=== PATIENT | female | born 1980 | race Caucasian/White ===

== ENCOUNTER 2021-03-06 09:58 | Emergency (ER) | payer MEDICAID, OTHER, SELFPAY ==
--- NOTE | 2021-03-06 10:31 | XRR_ITS ---
PROCEDURE INFORMATION: Exam: XR Chest Exam date and time: 03/06/2021 10:31 AM Age: 40 years old Clinical indication: Condition or disease; Other: Covid; Additional info: Covid pos TECHNIQUE: Imaging protocol: XR of the chest. Views: 1 view. COMPARISON: No relevant prior studies available. FINDINGS: Lungs: Bilateral interstitial pulmonary infiltrates are present which are consistent with viral pneumonia. Pleural spaces: Unremarkable. No pleural effusion. No pneumothorax. Heart/Mediastinum: Unremarkable. No cardiomegaly. Bones/joints: Unremarkable. XR/XR chest 1V portable [id number] IMPRESSION: Bilateral interstitial pulmonary infiltrates consistent with interstitial viral pneumonia.
[2021-03-06 11:12] VITALS: BP 164/121; PULSE 122; RESP 16; TEMP 38.2; O2SAT 92
--- NOTE | 2021-03-06 11:46 | ED_ITS ---
HPI - COVID General: Chief Complaint: COVID symptoms Stated Complaint: Fatique, low o2, SOB, covid + Time Seen by Provider: 03/06/21 12:06 Source: patient Mode of arrival: ambulatory Triage information: Has fever, cough or shortness of breath . Exposure to COVID + person last 14 days History of Present Illness: HPI Narrative: day 8 of covid symptoms, positive from at home test complaint: known COVID positive Prior testing date: 02/27/21 COVID 19 common symptoms: positive fever(s), chills, cough, productive cough, fatigue, nasal congestion, nausea, vomiting and chest tightness COVID 19 other sytmptoms: positive chest pressure COVID Results: No Data to Display Review of Systems General: Reports: 10 or more systems reviewed and unremarkable except in HPI and below Const: Reports: fever(s), chills, fatigue and night sweats ENMT: Reports: nasal congestion Resp: Reports: productive cough GI: Reports: nausea and vomiting Physical Exam Const: COMMON NORMALS: no acute distress, patient oriented x3, no limitations and alert GENERAL APPEARANCE: cooperative and comfortable ORIENTATION/CONSCIOUSNESS: Yes awake, Yes oriented to person, Yes oriented to place and Yes oriented to time HENMT: COMMON NORMALS: normocephalic, atraumatic, external ears normal, EAC's normal, TM's normal bilaterally and Normal external nose present HEAD & SCALP: normal to inspection, normocephalic and atraumatic FACE & SINUS: normal facial exam, sinuses nontender and face symmetric NOSE: Normal external nose present, Normal nares present and No nasal discharge present EXTERNAL EAR: Yes external ears normal EXTERNAL AUDITORY CANAL: EAC's normal TYMPANIC MEMBRANE: TM's normal bilaterally MOUTH: Normal oral and palatal mucosa present, lip normal and tongue normal THROAT: posterior oropharynx normal, tonsils normal and uvula midline Eye: COMMON NORMALS: Equal, round and reactive pupils present, EOMs intact bilaterally and conjunctivae normal GENERAL EYE: appearance normal, both eyes and all related structures and normal light reflex EYELID: eyelids normal CONJUNCTIVA: Yes conjunctivae normal PUPIL: Yes Equal, round and reactive pupils present EOM: Yes EOM abnormal DIRECT OPHTHALMOSCOPY: Yes normal light reflex Neck/C-Spine: COMMON NORMALS: full ROM, no lymphadenopathy, supple, no meningeal signs, no JVD and Thyroid normal GENERAL: Yes normal visual inspection THYROID: Thyroid normal CERVICAL SPINE: Yes cervical ROM normal and Yes normal cervical lordosis Lymph: LYMPHATIC: no lymphadenopathy noted Chest: COMMONS NORMALS: normal inspection of the chest and normal palpation of entire chest wall Resp: COMMON NORMALS: clear to auscultation bilaterally EFFORT & INSPECTION: Yes able to speak in complete sentences AUSCULTATION: clear to auscultation bilaterally Cardio: COMMON NORMALS: no JVD, regular rate, regular rhythm, S1 normal heart sound present, S2 normal heart sound present, No gallops present (Cardio), No clicks present (Cardio), No murmurs present (Cardio), No rub (Cardio) and Peripheral pulses 2+ throughout RATE: regular rate RHYTHM: regular rhythm HEART SOUNDS: S1 normal heart sound present and S2 normal heart sound present PERIPHERAL PULSES: Peripheral pulses 2+ throughout GI: COMMON NORMALS: Normal to inspection, nondistended, normoactive bowel sounds present, Soft to palpation, non-tender and no masses PALPATION: Yes Soft to palpation : COMMON NORMALS: Yes no CVA tenderness and Yes normal external appearance BLADDER/KIDNEY EXAM: Yes no CVA tenderness Back/Pelvis: COMMON NORMALS: no CVA tenderness, thoracic and lumbar spine normal to inspection, no thoracic nor lumbar tenderness and thoraco-lumbar ROM normal Extremity: COMMON NORMALS: normal to inspection, full ROM, capillary refill normal, no joint enlargement, no clubbing, cyanosis or edema, no calf tenderness and no pedal edema GENERAL: Yes normal exam except as noted Neuro: COMMON NORMALS: patient oriented x3, moves all extremities, no focal motor deficits, no sensory deficits noted and gait normal SENSORIUM/ORIENTATION: Yes alert, Yes oriented to person, Yes oriented to place and Yes oriented to time MENINGEAL SIGNS: Yes no meningeal signs Psych: COMMON NORMALS: mental status grossly normal, Normal thought process present, cooperative, normal affect, speech normal and activity/motor behavior normal SPEECH: Yes normal speech THOUGHT PROCESS: Normal thought process present Skin: COMMON NORMALS: no rashes or lesions noted, no wounds and turgor normal GENERAL SKIN EXAM: no rashes or lesions noted and turgor normal Course ED course: Pt has been ill with covid for 8 days, fever is persistent and breakthrough despite her taking antipyretics. She is fatigued and has some episodes of low ooxygen. Pt will benefit from MCA infusion and we will set her up via case management. Her sats remain over 92% while in the ER. She is stable for DC. XRAY consistent with viral pneumonia. Vital Signs: Vital signs: Vital Signs Temperature 100.7 F H 03/06/21 11:12 Pulse Rate 122 H 03/06/21 11:12 Respiratory Rate 16 03/06/21 11:12 Blood Pressure 164/121 03/06/21 11:12 Pulse Oximetry 92 03/06/21 11:12 MDM - COVID Lab Data: Labs: [employer] [facility] [address] [place] [address] XRay Report Signed Patient: Sudha Talavera Unit #: [id number] : [id number] Age/Sex: 40 / F ADM Date: 03/06/21 Loc: ER Room/Bed: Attending Dr: Ordering Provider/Ordering MD: Shaylee Judge NP Date of Service: 03/06/21 Procedure(s): XR chest 1V portable [id number] Accession Number(s): [id number] Report Number: [id number] PROCEDURE INFORMATION: Exam: XR Chest Exam date and time: 03/06/2021 10:31 AM Age: 40 years old Clinical indication: Condition or disease; Other: Covid; Additional info: Covid pos TECHNIQUE: Imaging protocol: XR of the chest. Views: 1 view. COMPARISON: No relevant prior studies available. FINDINGS: Lungs: Bilateral interstitial pulmonary infiltrates are present which are consistent with viral pneumonia. Pleural spaces: Unremarkable. No pleural effusion. No pneumothorax. Heart/Mediastinum: Unremarkable. No cardiomegaly. Bones/joints: Unremarkable. XR/XR chest 1V portable [id number] IMPRESSION: Bilateral interstitial pulmonary infiltrates consistent with interstitial viral pneumonia. Dictated By: Fan Lane Signed By: Fan Lane Signed Date/Time: 03/06/21 1108 DD/ 1106 COVID Results: No Data to Display Monoclonal Antibody - ED Inclusion/Exclusion Criteria age >/= 12 years, weight >/= 40kg /88lbs and symptom onset less than 10 days ago obesity (BMI >25 or 85%til for age) Patient education patient/family/caregiver received/reviewed fact sheet Plan for treatment Meets criteria for Monoclonal Antibody infusion Date of symptom(s) onset: 02/27/21 Discharge Plan Discharge Condition: Stable Prescriptions: New Advair Diskus 100-50 mcg/dose blister with device 1 inh inhalation Q12H Qty: 1 RF: 0 dexamethasone 6 mg tablet 6 mg PO DAILY Qty: 6 RF: 0 Zithromax TRI-DARYL 500 mg tablet See Rx Instructions .ROUTE .COMPLEX Qty: 3 RF: 0 Zofran 4 mg tablet 4 mg PO Q6H Qty: 15 RF: 0 Discharge Orders: Discharge ED (Routine); Ordered 03/06/21 Ordered By: Shaylee Judge Referrals: Cary Juárez APRN [Nurse Practitioner] - ([facility]) Activity Restrictions/Additional Instructions: VIT d 3 10,000 IUI x 5 days VIT C 2000 MG DAILY MELATONIN 10MG DAILY QUERCETIN 250 MG DAILY ASPIRIN 81 MG DAILY CONTINUE THIS REGIMEN FOR 2 WEEKS YOU WILL BE GETTING A CALL FROM [facility] FOR YOUR TELEHEALTH APPT WITH CARY JUÁREZ NP. THEN YOU WILL BE GIVEN A TIME FOR YOUR INFUSION. Coding Level of Care Code ED Accounting Clerk for Prabhu Fwd Exam Comprehensive
[2021-03-06] MEDS: acetaminophen 500 mg Tablet 1000 MG PO (12:44)
[2021-03-06] MEDS: dexamethasone 10 mg/mL INJ IM (12:44)
[2021-03-06 12:46] VITALS: PULSE 118; RESP 18; O2SAT 92
--- NOTE | 2021-03-06 15:08 | DCPLANNER ---
seaport planning manager had message to schedule an out patient monoclonal antibody infusion for patient. [facility]aport planning manager faxed order to centralized scheduling. Centralized scheduling will call patient with appointment information.
== END 2021-03-06 12:48 | disposition home or self-care (01) ==
PROVIDERS: Emergency Provider Nurse Practitioner Family
DX: U07.1 COVID-19 (principal)
CPT/HCPCS: 71045; 96372; 99283; J1100

== ENCOUNTER 2021-03-14 12:41 | Emergency (ER) | payer MEDICAID, SELFPAY ==
[2021-03-14 13:05] LABS: Glucose Point of Care 434 mg/dL (70-110)
--- NOTE | 2021-03-14 13:08 | XR_ITS ---
WS: [id number] Portable AP upright chest, 03/14/2021 Clinical Data: SOB Comparison: Audible chest, 03/06/2021. Findings: The bilateral patchy opacities have partly cleared The pulmonary vascularity is not increas ed. No pneumothorax is seen. The heart is normal. The pulmonary vascularity is not increased. Monitor leads on the chest wall. XR/XR chest 1V portable [id number] Impression: Partial clearing of bilateral pulmonary opacities.
--- NOTE | 2021-03-14 13:09 | ED_ITS ---
Documented by User: CHEYANNE Dickens 03/15/21 07:02 HPI - General Adult General: Chief complaint: Shortness of Breath/Dyspnea Stated complaint: high blood sugars Time Seen by Provider: 03/14/21 12:51 Source: patient Mode of arrival: ambulatory Limitations: no limitations History of Present Illness: HPI narrative: Patient is a 40-year-old female presents to ED today at the request of her PCP for hyperglycemia. Patient tells me she was diagnosed with COVID approximately 2 weeks ago. She is currently off quarantine (although reportedly is still on O2 per her PCP request). At some point during that time period she had routine blood work performed and when she went to her PCP today for follow-up they informed her her glucose was over 500 and recommended she come to the ED. Patient denies frequent urination or excessive thirst. She is not having abdominal pain, nausea, or vomiting. She has a history of gestational diabetes but no other diabetic history. She does state diabetes runs in her family. Relieving factors: none Exacerbating factors: none Associated symptoms: Reports dyspnea (recent COVID infection-still on oxygen per PCP request); Deny chest pain, headache(s), malaise, nausea, rash, palpitations, syncope or vomiting Review of Systems Const: Denies: fever(s), chills, body aches, fatigue or malaise Eyes: Denies: change in vision or blurry vision ENMT: Denies: throat pain, odynophagia, nasal discharge or nasal congestion Card: Denies: chest pain, palpitations, lightheadedness, syncope or pre- syncope Resp: Reports: dyspnea (recent COVID infection-still on oxygen per PCP request) and non-productive cough; Denies: wheezing, hemoptysis or chest congestion GI: Denies: abdominal pain, nausea, vomiting or diarrhea Skin/Breast: Denies: rash Neuro: Denies: headache(s), numbness in extremities, weakness in extremities or sensory changes PFS ED PFSH: Social History Smoking and tobacco status: never smoked Physical Exam Const: COMMON NORMALS: no acute distress, patient oriented x3, no limitations and alert GENERAL APPEARANCE: cooperative NUTRITIONAL APPEARANCE: obese ORIENTATION/CONSCIOUSNESS: Yes awake, Yes oriented to person, Yes oriented to place and Yes oriented to time HENMT: COMMON NORMALS: normocephalic and atraumatic HEAD & SCALP: normocephalic and atraumatic Resp: COMMON NORMALS: normal respiratory effort and clear to auscultation bilaterally AUSCULTATION: clear to auscultation bilaterally Cardio: COMMON NORMALS: regular rhythm RATE: tachycardic RHYTHM: regular rhythm GI: COMMON NORMALS: Normal to inspection, nondistended, normoactive bowel sounds present, Soft to palpation, non-tender, No hepatosplenomegaly present and no masses PALPATION: Yes Soft to palpation and Yes No hepatosplenomegaly present Extremity: COMMON NORMALS: no clubbing, cyanosis or edema, no calf tenderness and no pedal edema Neuro: ALIRIO COMA SCALE: document GCS findings Alirio coma scale eye opening: Spontaneous [place] coma scale verbal response: Orientated [place] coma scale motor response: Obey commands Alirio coma scale total score: 15 COMMON NORMALS: patient oriented x3, CN's II-XII intact bilaterally, moves all extremities, no focal motor deficits, no sensory deficits noted and gait normal SENSORIUM/ORIENTATION: Yes alert, Yes oriented to person, Yes oriented to place and Yes oriented to time Skin: COMMON NORMALS: no rashes or lesions noted GENERAL SKIN EXAM: no rashes or lesions noted Course Vital Signs: Vital signs: Vital Signs Temperature 98.9 F 03/14/21 13:33 Pulse Rate 98 03/14/21 18:08 Respiratory Rate 18 03/14/21 18:08 Blood Pressure 135/85 03/14/21 18:08 Pulse Oximetry 96 03/14/21 18:08 MDM - General Adult [facility] Narrative: Medical decision making narrative: Patient remains tachycardic throughout her stay. She is requiring 3L O2 to sat normally. This certainly could just be some lingering COVID symptoms however the development of a PE could be a possibility. She states all of her other COVID symptoms have subsided. Her CXR is improved when compared to previous. D-dimer was ordered which came back elevated. Spoke to her about CTA imaging and she agrees. She has no evidence for DKA in regards to her hyperglycemia. She was given fluids/insulin here. Will place on Metformin BID and give diabetic supplies with instructions to follow up with PCP for further management and possible initiation of insulin therapy. Care will be transferred to KATHY Casey at shift change. Lab Data: Labs: Lab Results 03/14/21 03/14/21 03/14/21 Range/Units 13:00 13:14 13:50 WBC 12.3 H (4.0-10.0) 10^3/ uL RBC 5.55 H (4.1-5.3) 10^6/u L Hgb 16.0 H (11.5-15.3) g/dL Hct 47.6 H (37.0-47.0) % MCV 85.8 (81-99) fl MCH 28.8 (28.0-34.0) pg MCHC 33.6 (30.0-36.0) g/dL RDW 10.9 L (12.1-15.1) % Plt Count 443 H (130-400) 10^3/c mm MPV 11.9 H (7.4-10.4) fL Neut % (Auto) 72.4 % Lymph % (Auto) 18.0 % Ferry % (Auto) 6.8 % Eos % (Auto) 0.5 % Baso % (Auto) 0.3 % Neut # (Auto) 8.86 H (1.8-7.7) 10^3/u L Lymph # (Auto) 2.2 (0.8-4.8) 10^3/u L Ferry # (Auto) 0.8 (0.2-0.9) 10^3/u L Eos # (Auto) 0.1 (0.0-0.8) 10^3/u L Baso # (Auto) 0.0 (0.0-0.1) 10^3/u L Nucleated RBC % (a uto) 0 % Nucleated RBCs # 0.0 /100WBC D-Dimer (0-0.59) ug/mIFE U Specimen Type Arterial Sample Site Radial, right ABG pH 7.47 H (7.35-7.45) ABG pCO2 36.6 (35-45) mmHg ABG pO2 93.5 (80.0-100.0) mmH g ABG HCO3 26.8 H (22-26) mmol/L ABG O2 Saturation 98.2 ABG Base Excess 3.3 H (-2.0-2.0) mmol/ L Héctor Test Pos A-a O2 Gradient 11.5 H (5-10) mmHg Hematocrit 49.4 H (37-47) % Hgb O2 Saturation 97.5 (95-100) % Carboxyhemoglobin 0.5 (0.4-20.1) %THgb Methemoglobin 0.1 L (0.4-1.5) % Total Hemoglobin 16.1 H (12-16) g/dL Sodium 135.0 (131-143) mmol/L Potassium 3.9 (3.5-5.0) mmol/L Glucose 437.0 H (70-115) mg/dL Ionized Calcium 1.2 (1.1-1.4) mmol/L O2 Delivery Device Nc O2 Liters/Min 3.0 % FiO2 32.0 % [employer] Inspector ID glc Chloride (98-107) mmol/L Carbon Dioxide (22-29) mmol/L Anion Gap (5-19) BUN (6-20) mg/dL Creatinine (0.5-0.9) mg/dL GFR Calculation (90-130) mL/min POC Glucose 434 H (70-110) mg/dL Calculated Osmolal ity (285-295) mOsm/k g Calcium (8.5-10.5) mg/dL Total Bilirubin (0.15-1.2) mg/dL AST (0-32) U/L ALT (0-33) U/L Alkaline Phosphata se (35-105) IU/L Total Protein (6.6-8.7) g/dL Albumin (3.5-5.2) g/dL Globulin (1.3-4.6) g/dL HCG, Qual (Negative) Serum Ketones (Negative) 03/14/21 03/14/21 03/14/21 Range/Units 13:50 13:50 13:50 WBC (4.0-10.0) 10^3/ uL RBC (4.1-5.3) 10^6/u L Hgb (11.5-15.3) g/dL Hct (37.0-47.0) % MCV (81-99) fl MCH (28.0-34.0) pg MCHC (30.0-36.0) g/dL RDW (12.1-15.1) % Plt Count (130-400) 10^3/c mm MPV (7.4-10.4) fL Neut % (Auto) % Lymph % (Auto) % Ferry % (Auto) % Eos % (Auto) % Baso % (Auto) % Neut # (Auto) (1.8-7.7) 10^3/u L Lymph # (Auto) (0.8-4.8) 10^3/u L Ferry # (Auto) (0.2-0.9) 10^3/u L Eos # (Auto) (0.0-0.8) 10^3/u L Baso # (Auto) (0.0-0.1) 10^3/u L Nucleated RBC % (a uto) % Nucleated RBCs # /100WBC D-Dimer (0-0.59) ug/mIFE U Specimen Type Sample Site ABG pH (7.35-7.45) ABG pCO2 (35-45) mmHg ABG pO2 (80.0-100.0) mmH g ABG HCO3 (22-26) mmol/L ABG O2 Saturation ABG Base Excess (-2.0-2.0) mmol/ L Héctor Test A-a O2 Gradient (5-10) mmHg Hematocrit (37-47) % Hgb O2 Saturation (95-100) % Carboxyhemoglobin (0.4-20.1) %THgb Methemoglobin (0.4-1.5) % Total Hemoglobin (12-16) g/dL Sodium 132 L (131-143) mmol/L Potassium 4.2 (3.5-5.0) mmol/L Glucose 419 H (70-115) mg/dL Ionized Calcium (1.1-1.4) mmol/L O2 Delivery Device O2 Liters/Min % FiO2 % [employer] Inspector ID Chloride 90 L (98-107) mmol/L Carbon Dioxide 27 (22-29) mmol/L Anion Gap 19.2 H (5-19) BUN 18 (6-20) mg/dL Creatinine 0.5 (0.5-0.9) mg/dL GFR Calculation 138.1 H (90-130) mL/min POC Glucose (70-110) mg/dL Calculated Osmolal ity 294 (285-295) mOsm/k g Calcium 9.1 (8.5-10.5) mg/dL Total Bilirubin 0.5 (0.15-1.2) mg/dL AST 33 H (0-32) U/L ALT 44 H (0-33) U/L Alkaline Phosphata se 111 H (35-105) IU/L Total Protein 7.3 (6.6-8.7) g/dL Albumin 3.9 (3.5-5.2) g/dL Globulin 3.4 (1.3-4.6) g/dL HCG, Qual Negative (Negative) Serum Ketones Negative (Negative) 03/14/21 03/14/21 Range/Units 13:55 15:38 WBC (4.0-10.0) 10^3/ uL RBC (4.1-5.3) 10^6/u L Hgb (11.5-15.3) g/dL Hct (37.0-47.0) % MCV (81-99) fl MCH (28.0-34.0) pg MCHC (30.0-36.0) g/dL RDW (12.1-15.1) % Plt Count (130-400) 10^3/c mm MPV (7.4-10.4) fL Neut % (Auto) % Lymph % (Auto) % Ferry % (Auto) % Eos % (Auto) % Baso % (Auto) % Neut # (Auto) (1.8-7.7) 10^3/u L Lymph # (Auto) (0.8-4.8) 10^3/u L Ferry # (Auto) (0.2-0.9) 10^3/u L Eos # (Auto) (0.0-0.8) 10^3/u L Baso # (Auto) (0.0-0.1) 10^3/u L Nucleated RBC % (a uto) % Nucleated RBCs # /100WBC D-Dimer 0.79 H (0-0.59) ug/mIFE U Specimen Type Sample Site ABG pH (7.35-7.45) ABG pCO2 (35-45) mmHg ABG pO2 (80.0-100.0) mmH g ABG HCO3 (22-26) mmol/L ABG O2 Saturation ABG Base Excess (-2.0-2.0) mmol/ L Héctor Test A-a O2 Gradient (5-10) mmHg Hematocrit (37-47) % Hgb O2 Saturation (95-100) % Carboxyhemoglobin (0.4-20.1) %THgb Methemoglobin (0.4-1.5) % Total Hemoglobin (12-16) g/dL Sodium (131-143) mmol/L Potassium (3.5-5.0) mmol/L Glucose (70-115) mg/dL Ionized Calcium (1.1-1.4) mmol/L O2 Delivery Device O2 Liters/Min % FiO2 % [employer] Inspector ID Chloride (98-107) mmol/L Carbon Dioxide (22-29) mmol/L Anion Gap (5-19) BUN (6-20) mg/dL Creatinine (0.5-0.9) mg/dL GFR Calculation (90-130) mL/min POC Glucose 333 H (70-110) mg/dL Calculated Osmolal ity (285-295) mOsm/k g Calcium (8.5-10.5) mg/dL Total Bilirubin (0.15-1.2) mg/dL AST (0-32) U/L ALT (0-33) U/L Alkaline Phosphata se (35-105) IU/L Total Protein (6.6-8.7) g/dL Albumin (3.5-5.2) g/dL Globulin (1.3-4.6) g/dL HCG, Qual (Negative) Serum Ketones (Negative) Imaging Data^: CXR: Radiologist's impression: [address] [address]VMto ReportSigned Patient: Carole Talavera #: [id number]: [id number]#:[id number]/Sex: 40 / FADM Date: 03/14/21Loc: ERRoom/Bed:Attending Dr: Ordering Provider/Ordering MD: Miranda Pina Date of Service: 03/14/21 Procedure(s): XR chest 1V portable [id number] Accession Number(s): [id number] Report Number: [id number] WS: [id number] Portable AP upright chest, 03/14/2021 Clinical Data: SOB Comparison: Audible chest, 03/06/2021. Findings: The bilateral patchy opacities have partly cleared The pulmonary vascularity is not increased. No pneumothorax is seen. The heart is normal. The pulmonary vascularity is not increased. Monitor leads on the chest wall. XR/XR chest 1V portable [id number] Impression: Partial clearing of bilateral pulmonary opacities. Dictated By:Lena Irving MDSigned By:Lena Irving MDSigned Date/Time:03/14/21 1326DD/ 1324 CTA Chest: Radiologist's impression: [employer] [address] [address] Scan Report Signed with Addenda Patient: Sudha Talavera Unit #: [id number] : [id number] ct#:[id number] Age/Sex: 40 / F ADM Date: 03/14/21 Loc: ER Room/Bed: Attending Dr: Ordering Provider/Ordering MD: Miranda Pina Date of Service: 03/14/21 Procedure(s): CT angio chest PE protcl [id number] Accession Number(s): [id number] Report Number: [id number]/CT angio chest PE protcl [id number] Addendum: THIS REPORT CONTAINS FINDINGS THAT MAY BE CRITICAL TO PATIENT CARE. The findings were verbally communicated via telephone conference with Dr. Villareal at 5:11 PM CDT on 03/14/2021. The findings were acknowledged and understood. Radiation Dose CTDIVOL = (mGy): DLP = 609.6 (mGy-cm) Addendum Dictated By: Calvin Lee Addendum Signed By: Calvin Lee Signed Date/Time: 03/14/21 171 3 Addendum Cosigned By: PROCEDURE INFORMATION: Exam: CTA Chest With Contrast Exam date and time: 03/14/2021 4:11 PM Age: 40 years old Clinical indication: Shortness of breath; Additional info: Post-covid, still requiring o2; Elevated d dimer TECHNIQUE: Imaging protocol: Computed tomographic angiography of the chest with contrast. 3D rendering (Not supervised by radiologist): MIP and/or 3D reconstructed images were created by the technologist. Radiation optimization: All CT scans at this facility use at least one of these dose optimization techniques: automated exposure control; mA and/or kV adjustment per patient size (includes targeted exams where dose is matched to clinical indication); or iterative reconstruction. Contrast material: OMNI 350; Contrast volume: 70 ml; Contrast route: INTRAVENOUS (IV); COMPARISON: CR XR chest 1V portable [id number] 03/14/2021 1:11 PM RADIATION DOSE METRICS: Total DLP (mGy-cm): 609.6 FINDINGS: Limitations: Study is limited due to patient body habitus. Pulmonary arteries: There is filling defect obstructing a subsegmental branch in the medial aspect of the left lower lobe suspicious for pulmonary embolus. There is also question of filling defect in the pulmonary artery branch in the right middle lobe also worrisome for pulmonary embolism. Aorta: There is no thoracic aortic aneurysm or dissection. Lungs: There is some platelike atelectasis or scarring in the right upper lobe and posterior left upper lobe and some platelike atelectasis in the left lower lobe. There are some scattered rounded ground-glass opacities and more confluent ground-glass opacity in the left upper lobe consistent with clinical history of recent COVID-19 infection. Pleural spaces: Unremarkable. No pneumothorax. No pleural effusion. Heart: There is no right heart strain. The right ventricle to left ventricle ratio is less than 1. Lymph nodes: There is no evidence of lymphadenopathy. Bones/joints: Unremarkable. No acute fracture. Soft tissues: Unremarkable. CT/CT angio chest PE protcl [id number] IMPRESSION: 1. Commonly reported imaging features of COVID-19 pneumonia are present. Other processes such as influenza pneumonia and organizing pneumonia, as can be seen with drug toxicity and connective tissue disease, can cause a similar imaging pattern. 2. Bilateral atelectasis 3. Positive for pulmonary embolism. Radiation Dose CTDIVOL = (mGy): DLP = 609.6 (mGy-cm) Dictated By: Calvin Lee Signed By: Calvin Lee Signed Date/Time: 03/14/211709 DD/ 08 Discharge Plan Discharge Patient Disposition: Home Clinical Impression: New onset type 2 diabetes mellitus Pulmonary embolism Qualifiers: Pulmonary embolism type: unspecified Chronicity: unspecified Acute cor pulmonale presence: without acute cor pulmonale Qualified Code(s): I26.99 - Other pulmonary embolism without acute cor pulmonale Condition: Stable Prescriptions: New metformin 500 mg tablet 500 mg PO BID Qty: 60 RF: 0 (DME) diabetic supplies, miscellan. Misc See Rx Instructions .Route Qty: 1 RF: 0 Eliquis DVT-PE Treat 30D Start 5 mg (74 tabs) tablets,dose pack See Rx Instructions .ROUTE .COMPLEX Qty: 74 RF: 0 No Action cholecalciferol (vitamin D3) 250 mcg (10,000 unit) tablet 250 mcg PO DAILY RF: 0 melatonin 10 mg capsule 10 mg PO BEDTIME RF: 0 aspirin 81 mg tablet,delayed release (DR/EC) 81 mg PO DAILY RF: 0 lisinopril-hydrochlorothiazide 10-12.5 mg tablet 1 tab PO DAILY Qty: 30 RF: 0 fluticasone propion-salmeterol [Advair Diskus] 100-50 mcg/dose blister with device 1 inh inhalation Q12H Qty: 1 RF: 0 ondansetron HCl [Zofran] 4 mg tablet 4 mg PO Q6H Qty: 15 RF: 0 albuterol sulfate 2.5 mg /3 mL (0.083 %) Solution For Nebulization 2.5 mg INHALATION BID MDD SEE PHARMACY COMMENT PRN (Reason: Shortness Of Breath) RF: 0 Vitamin C 1,000 mg Tablet 1 g PO DAILY RF: 0 Discharge Orders: Discharge ED (Routine); Ordered 03/14/21 Ordered By: César Mills Referrals: Erendira George PA-C [Primary Care Provider] - Discharge Diet: Usual diet Discharge Activity: Increase activity as tolerated Patient Instructions: Pulmonary Embolism (GEN), Opioid Safety Activity Restrictions/Additional Instructions: Go to the [facility] outpatient pharmacy to get you 1 month Carly manriquez to ER bill. 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 Talk to your primary care about patient salon shampoo assistant programs. Talk with Medicaid for further assistance regarding your medications. Return to the ER for worsening symptoms or new concerns. Sign Out Sign Out Data: Patient Sign Out occurred on 03/14/21 at 17:12. Patient's care was discussed, and care was transferred from to César Mills. Coding Level of Care Code ED [employer] Attorney for Chg Fwd Exam Comprehensive Documented by User: KATHY Rasheed 03/14/21 17:36 HPI - General Adult General: Chief complaint: Shortness of Breath/Dyspnea Stated complaint: high blood sugars Time Seen by Provider: 03/14/21 12:51 PFSH ED PFSH: Social History Smoking and tobacco status: never smoked Course Vital Signs: Vital signs: Vital Signs Temperature 98.9 F 03/14/21 13:33 Pulse Rate 98 03/14/21 18:08 Respiratory Rate 18 03/14/21 18:08 Blood Pressure 135/85 03/14/21 18:08 Pulse Oximetry 96 03/14/21 18:08 MDM - General Adult MDM Narrative: Medical decision making narrative: CTA returned a small pulmonary embolism without any signs of serious abnormality. We discussed this with patient started on Eliquis and gave 1 dose of Lovenox after consulting with Dr. Villareal. Patient will follow up with primary care for further assistance with acquiring Eliquis through a patient assistance program. Patient was referred to [facility] outpatient pharmacy for participation [address] and also Rx assistance. Patient reported understanding and agreed to plan. Lab Data: Labs: Lab Results 03/14/21 03/14/21 03/14/21 Range/Units 13:00 13:14 13:50 WBC 12.3 H (4.0-10.0) 10^3/ uL RBC 5.55 H (4.1-5.3) 10^6/u L Hgb 16.0 H (11.5-15.3) g/dL Hct 47.6 H (37.0-47.0) % MCV 85.8 (81-99) fl MCH 28.8 (28.0-34.0) pg MCHC 33.6 (30.0-36.0) g/dL RDW 10.9 L (12.1-15.1) % Plt Count 443 H (130-400) 10^3/c mm MPV 11.9 H (7.4-10.4) fL Neut % (Auto) 72.4 % Lymph % (Auto) 18.0 % Ferry % (Auto) 6.8 % Eos % (Auto) 0.5 % Baso % (Auto) 0.3 % Neut # (Auto) 8.86 H (1.8-7.7) 10^3/u L Lymph # (Auto) 2.2 (0.8-4.8) 10^3/u L Ferry # (Auto) 0.8 (0.2-0.9) 10^3/u L Eos # (Auto) 0.1 (0.0-0.8) 10^3/u L Baso # (Auto) 0.0 (0.0-0.1) 10^3/u L Nucleated RBC % (a uto) 0 % Nucleated RBCs # 0.0 /100WBC D-Dimer (0-0.59) ug/mIFE U Specimen Type Arterial Sample Site Radial, right ABG pH 7.47 H (7.35-7.45) ABG pCO2 36.6 (35-45) mmHg ABG pO2 93.5 (80.0-100.0) mmH g ABG HCO3 26.8 H (22-26) mmol/L ABG O2 Saturation 98.2 ABG Base Excess 3.3 H (-2.0-2.0) mmol/ L Héctor Test Pos A-a O2 Gradient 11.5 H (5-10) mmHg Hematocrit 49.4 H (37-47) % Hgb O2 Saturation 97.5 (95-100) % Carboxyhemoglobin 0.5 (0.4-20.1) %THgb Methemoglobin 0.1 L (0.4-1.5) % Total Hemoglobin 16.1 H (12-16) g/dL Sodium 135.0 (131-143) mmol/L Potassium 3.9 (3.5-5.0) mmol/L Glucose 437.0 H (70-115) mg/dL Ionized Calcium 1.2 (1.1-1.4) mmol/L O2 Delivery Device Nc O2 Liters/Min 3.0 % FiO2 32.0 % [employer] Inspector ID glc Chloride (98-107) mmol/L Carbon Dioxide (22-29) mmol/L Anion Gap (5-19) BUN (6-20) mg/dL Creatinine (0.5-0.9) mg/dL GFR Calculation (90-130) mL/min POC Glucose 434 H (70-110) mg/dL Calculated Osmolal ity (285-295) mOsm/k g Calcium (8.5-10.5) mg/dL Total Bilirubin (0.15-1.2) mg/dL AST (0-32) U/L ALT (0-33) U/L Alkaline Phosphata se (35-105) IU/L Total Protein (6.6-8.7) g/dL Albumin (3.5-5.2) g/dL Globulin (1.3-4.6) g/dL HCG, Qual (Negative) Serum Ketones (Negative) 03/14/21 03/14/21 03/14/21 Range/Units 13:50 13:50 13:50 WBC (4.0-10.0) 10^3/ uL RBC (4.1-5.3) 10^6/u L Hgb (11.5-15.3) g/dL Hct (37.0-47.0) % MCV (81-99) fl MCH (28.0-34.0) pg MCHC (30.0-36.0) g/dL RDW (12.1-15.1) % Plt Count (130-400) 10^3/c mm MPV (7.4-10.4) fL Neut % (Auto) % Lymph % (Auto) % Ferry % (Auto) % Eos % (Auto) % Baso % (Auto) % Neut # (Auto) (1.8-7.7) 10^3/u L Lymph # (Auto) (0.8-4.8) 10^3/u L Ferry # (Auto) (0.2-0.9) 10^3/u L Eos # (Auto) (0.0-0.8) 10^3/u L Baso # (Auto) (0.0-0.1) 10^3/u L Nucleated RBC % (a uto) % Nucleated RBCs # /100WBC D-Dimer (0-0.59) ug/mIFE U Specimen Type Sample Site ABG pH (7.35-7.45) ABG pCO2 (35-45) mmHg ABG pO2 (80.0-100.0) mmH g ABG HCO3 (22-26) mmol/L ABG O2 Saturation ABG Base Excess (-2.0-2.0) mmol/ L Héctor Test A-a O2 Gradient (5-10) mmHg Hematocrit (37-47) % Hgb O2 Saturation (95-100) % Carboxyhemoglobin (0.4-20.1) %THgb Methemoglobin (0.4-1.5) % Total Hemoglobin (12-16) g/dL Sodium 132 L (131-143) mmol/L Potassium 4.2 (3.5-5.0) mmol/L Glucose 419 H (70-115) mg/dL Ionized Calcium (1.1-1.4) mmol/L O2 Delivery Device O2 Liters/Min % FiO2 % [employer] Inspector ID Chloride 90 L (98-107) mmol/L Carbon Dioxide 27 (22-29) mmol/L Anion Gap 19.2 H (5-19) BUN 18 (6-20) mg/dL Creatinine 0.5 (0.5-0.9) mg/dL GFR Calculation 138.1 H (90-130) mL/min POC Glucose (70-110) mg/dL Calculated Osmolal ity 294 (285-295) mOsm/k g Calcium 9.1 (8.5-10.5) mg/dL Total Bilirubin 0.5 (0.15-1.2) mg/dL AST 33 H (0-32) U/L ALT 44 H (0-33) U/L Alkaline Phosphata se 111 H (35-105) IU/L Total Protein 7.3 (6.6-8.7) g/dL Albumin 3.9 (3.5-5.2) g/dL Globulin 3.4 (1.3-4.6) g/dL HCG, Qual Negative (Negative) Serum Ketones Negative (Negative) 03/14/21 03/14/21 Range/Units 13:55 15:38 WBC (4.0-10.0) 10^3/ uL RBC (4.1-5.3) 10^6/u L Hgb (11.5-15.3) g/dL Hct (37.0-47.0) % MCV (81-99) fl MCH (28.0-34.0) pg MCHC (30.0-36.0) g/dL RDW (12.1-15.1) % Plt Count (130-400) 10^3/c mm MPV (7.4-10.4) fL Neut % (Auto) % Lymph % (Auto) % Ferry % (Auto) % Eos % (Auto) % Baso % (Auto) % Neut # (Auto) (1.8-7.7) 10^3/u L Lymph # (Auto) (0.8-4.8) 10^3/u L Ferry # (Auto) (0.2-0.9) 10^3/u L Eos # (Auto) (0.0-0.8) 10^3/u L Baso # (Auto) (0.0-0.1) 10^3/u L Nucleated RBC % (a uto) % Nucleated RBCs # /100WBC D-Dimer 0.79 H (0-0.59) ug/mIFE U Specimen Type Sample Site ABG pH (7.35-7.45) ABG pCO2 (35-45) mmHg ABG pO2 (80.0-100.0) mmH g ABG HCO3 (22-26) mmol/L ABG O2 Saturation ABG Base Excess (-2.0-2.0) mmol/ L Héctor Test A-a O2 Gradient (5-10) mmHg Hematocrit (37-47) % Hgb O2 Saturation (95-100) % Carboxyhemoglobin (0.4-20.1) %THgb Methemoglobin (0.4-1.5) % Total Hemoglobin (12-16) g/dL Sodium (131-143) mmol/L Potassium (3.5-5.0) mmol/L Glucose (70-115) mg/dL Ionized Calcium (1.1-1.4) mmol/L O2 Delivery Device O2 Liters/Min % FiO2 % [employer] Inspector ID Chloride (98-107) mmol/L Carbon Dioxide (22-29) mmol/L Anion Gap (5-19) BUN (6-20) mg/dL Creatinine (0.5-0.9) mg/dL GFR Calculation (90-130) mL/min POC Glucose 333 H (70-110) mg/dL Calculated Osmolal ity (285-295) mOsm/k g Calcium (8.5-10.5) mg/dL Total Bilirubin (0.15-1.2) mg/dL AST (0-32) U/L ALT (0-33) U/L Alkaline Phosphata se (35-105) IU/L Total Protein (6.6-8.7) g/dL Albumin (3.5-5.2) g/dL Globulin (1.3-4.6) g/dL HCG, Qual (Negative) Serum Ketones (Negative) Discharge Plan Discharge Patient Disposition: Home Clinical Impression: New onset type 2 diabetes mellitus Pulmonary embolism Qualifiers: Pulmonary embolism type: unspecified Chronicity: unspecified Acute cor pulmonale presence: without acute cor pulmonale Qualified Code(s): I26.99 - Other pulmonary embolism without acute cor pulmonale Condition: Stable Prescriptions: New metformin 500 mg tablet 500 mg PO BID Qty: 60 RF: 0 (DME) diabetic supplies, miscellan. Misc See Rx Instructions .Route Qty: 1 RF: 0 Eliquis DVT-PE Treat 30D Start 5 mg (74 tabs) tablets,dose pack See Rx Instructions .ROUTE .COMPLEX Qty: 74 RF: 0 No Action cholecalciferol (vitamin D3) 250 mcg (10,000 unit) tablet 250 mcg PO DAILY RF: 0 melatonin 10 mg capsule 10 mg PO BEDTIME RF: 0 aspirin 81 mg tablet,delayed release (DR/EC) 81 mg PO DAILY RF: 0 lisinopril-hydrochlorothiazide 10-12.5 mg tablet 1 tab PO DAILY Qty: 30 RF: 0 fluticasone propion-salmeterol [Advair Diskus] 100-50 mcg/dose blister with device 1 inh inhalation Q12H Qty: 1 RF: 0 ondansetron HCl [Zofran] 4 mg tablet 4 mg PO Q6H Qty: 15 RF: 0 albuterol sulfate 2.5 mg /3 mL (0.083 %) Solution For Nebulization 2.5 mg INHALATION BID MDD SEE PHARMACY COMMENT PRN (Reason: Shortness Of Breath) RF: 0 Vitamin C 1,000 mg Tablet 1 g PO DAILY RF: 0 Discharge Orders: Discharge ED (Routine); Ordered 03/14/21 Ordered By: César Mills Referrals: Erendira George PA-C [Primary Care Provider] - Discharge Diet: Usual diet Discharge Activity: Increase activity as tolerated Patient Instructions: Pulmonary Embolism (GEN), Opioid Safety Activity Restrictions/Additional Instructions: Go to the [facility] outpatient pharmacy to get you 1 month Eliquis charged to ER bill. 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 Talk to your primary care about patient salon shampoo assistant programs. Talk with Medicaid for further assistance regarding your medications. Return to the ER for worsening symptoms or new concerns. Sign Out Sign Out Data: Patient Sign Out occurred on 03/14/21 at 17:12. Patient's care was discussed, and care was transferred from to [facility]. Coding Level of Care Code ED Mergers [employer] Acquisitions Attorney for Prabhu Fwkacey Exam Comprehensive
[2021-03-14 13:24] LABS: ABG PCO2 36.6 mmHg (35-45); ABG PH Result 7.47 (7.35-7.45); Alveolar-Arterial Oxygen Gradi 11.5 mmHg (5-10); Arterial Blood Gas Hematocrit 49.4 % (37-47); Base Excess ABG 3.3 mmol/L (-2.0-2.0); Blood Gas Allen Test Pos; Blood Gas Operator Identificat glc; Blood Gas Sample Site Radial, right; Blood Gas Sample Type Arterial; Carboxyhemoglobin 0.5 %THgb (0.4-20.1); HCO3 ABG 26.8 mmol/L (22-26); HGB O2 Sat 97.5 % (95-100); Ionized Calcium Level - ABG 1.2 mmol/L (1.1-1.4); Methemoglobin 0.1 % (0.4-1.5); Oxygen Device NC; Oxygen Saturation ABG 98.2; PO2 ABG 93.5 mmHg (80.0-100.0); Potassium Level - ABG 3.9 mmol/L (3.5-5.0); Total Hemoglobin 16.1 g/dL (12-16)
[2021-03-14 13:33] VITALS: BP 140/107; PULSE 120; RESP 19; TEMP 37.2; O2SAT 97
[2021-03-14 13:55] LABS: Basophils % 0.3 %; Eosinophils # 0.1 10^3/uL (0.0-0.8); Eosinophils % 0.5 %; Hematocrit 47.6 % (37.0-47.0); Lymphocytes # 2.2 10^3/uL (0.8-4.8); Mean Corpuscular HGB Conc 33.6 g/dL (30.0-36.0); Mean Corpuscular Hemoglobin 28.8 pg (28.0-34.0); Mean Corpuscular Volume 85.8 fl (81-99); Mean Platelet Volume 11.9 fL (7.4-10.4); Monocytes # 0.8 10^3/uL (0.2-0.9); Monocytes % 6.8 %; Neutrophils # 8.86 10^3/uL (1.8-7.7); Neutrophils % 72.4 %; Nucleated Red Blood Cells % 0 %; Platelet Count 443 10^3/cmm (130-400); Red Blood Count 5.55 10^6/uL (4.1-5.3); Red Cell Distribution Width 10.9 % (12.1-15.1); White Blood Count 12.3 10^3/uL (4.0-10.0)
[2021-03-14] MEDS: sodium chloride 0.9% 1,000 ML 999 ML IV (13:59)
[2021-03-14 14:08] LABS: HCG, Serum Qual Negative (Negative); Ketone (Acetest) Serum Negative (Negative)
[2021-03-14 14:38] LABS: Alanine Aminotransferase 44 U/L (0-33); Albumin Level 3.9 g/dL (3.5-5.2); Alkaline Phosphatase 111 IU/L (35-105); Anion Gap 19.2 (5-19); Aspartate Amino Transferase 33 U/L (0-32); Blood Urea Nitrogen 18 mg/dL (6-20); Calcium 9.1 mg/dL (8.5-10.5); Carbon Dioxide 27 mmol/L (22-29); Chloride 90 mmol/L (98-107); Globulin 3.4 g/dL (1.3-4.6); Glomerular Filtration Rate 138.1 mL/min (90-130); Glucose 419 mg/dL (65-115); Osmolality Calculated 294 mOsm/kg (285-295); Potassium 4.2 mmol/L (3.5-5.1); Sodium 132 mmol/L (136-145); Total Bilirubin 0.5 mg/dL (0.15-1.2); Total Protein 7.3 g/dL (6.6-8.7)
[2021-03-14] MEDS: insulin regular-human 100 units/1 mL 10 UNIT IVP (14:46)
[2021-03-14 15:09] VITALS: BP 133/93; PULSE 98; RESP 18; O2SAT 98
[2021-03-14 15:41] LABS: Glucose Point of Care 333 mg/dL (70-110)
[2021-03-14 16:03] LABS: D Dimer 0.79 ug/mIFEU (0-0.59)
[2021-03-14 16:08] VITALS: BP 123/81; PULSE 106; RESP 18; O2SAT 95
--- NOTE | 2021-03-14 16:11 | CTR_ITS ---
PROCEDURE INFORMATION: Exam: CTA Chest With Contrast Exam date and time: 03/14/2021 4:11 PM Age: 40 years old Clinical indication: Shortness of breath; Additional info: Post-covid, still requiring o2; Elevated d dimer TECHNIQUE: Imaging protocol: Computed tomographic angiography of the chest with contrast. 3D rendering (Not supervised by radiologist): MIP and/or 3D reconstructed images were created by the technologist. Radiation optimization: All CT scans at this facility use at least one of these dose optimization techniques: automated exposure control; mA and/or kV adjustment per patient size (includes targeted exams where dose is matched to clinical indication); or iterative reconstruction. Contrast material: OMNI 350; Contrast volume: 70 ml; Contrast route: INTRAVENOUS (IV); COMPARISON: CR XR chest 1V portable [id number] 03/14/2021 1:11 PM RADIATION DOSE METRICS: Total DLP (mGy-cm): 609.6 FINDINGS: Limitations: Study is limited due to patient body habitus. Pulmonary arteries: There is filling defect obstructing a subsegmental branch in the medial aspect of the left lower lobe suspicious for pulmonary embolus. There is also question of filling defect in the pulmonary artery branch in the right middle lobe also worrisome for pulmonary embolism. Aorta: There is no thoracic aortic aneurysm or dissection. Lungs: There is some platelike atelectasis or scarring in the right upper lobe and posterior left upper lobe and some platelike atelectasis in the left lower lobe. There are some scattered rounded ground-glass opacities and more confluent ground-glass opacity in the left upper lobe consistent with clinical history of recent COVID-19 infection. Pleural spaces: Unremarkable. No pneumothorax. No pleural effusion. Heart: There is no right heart strain. The right ventricle to left ventricle ratio is less than 1. Lymph nodes: There is no evidence of lymphadenopathy. Bones/joints: Unremarkable. No acute fracture. Soft tissues: Unremarkable. CT/CT angio chest PE protcl [id number] IMPRESSION: 1. Commonly reported imaging features of COVID-19 pneumonia are present. Other processes such as influenza pneumonia and organizing pneumonia, as can be seen with drug toxicity and connective tissue disease, can cause a similar imaging pattern. 2. Bilateral atelectasis 3. Positive for pulmonary embolism. Radiation Dose CTDIVOL = (mGy): DLP = 609.6 (mGy-cm)
[2021-03-14 17:00] VITALS: BP 138/85; PULSE 82; RESP 18; O2SAT 99
[2021-03-14] MEDS: apixaban 5 mg Tablet 10 MG PO (18:07)
[2021-03-14 18:08] VITALS: BP 135/85; PULSE 98; RESP 18; O2SAT 96
[2021-03-14] MEDS: enoxaparin 120 mg/0.8 mL Syringe SUBCUT (18:08)
== END 2021-03-14 18:00 | disposition home or self-care (01) ==
PROVIDERS: Physician Assistant; Emergency Provider Nurse Practitioner Family; PCP Physician Assistant
DX: E11.9 Type 2 diabetes mellitus without complications (principal); I26.99 Other pulmonary embolism without acute cor pulmonale; Z79.82 Long term (current) use of aspirin
CPT/HCPCS: 36416; 36600; 71045; 71275; 80051; 80053; 82009; 82330; 82805; 82962; 84703; 85025; 85378; 96361; 96372; 96374; 99284; J1650; J1815; J7030; Q9967

== ENCOUNTER 2021-08-26 22:00 | Emergency (ER) | payer BC, MEDICAID, SELFPAY ==
[2021-08-26 22:23] VITALS: BP 119/82; PULSE 74; RESP 18; TEMP 36.6; O2SAT 96; BMI 51.2
--- NOTE | 2021-08-26 22:30 | XRR_ITS ---
PROCEDURE INFORMATION: Exam: XR Chest Exam date and time: 08/26/2021 10:30 PM Age: 41 years old Clinical indication: Cough TECHNIQUE: Imaging protocol: XR of the chest. Views: 1 view. COMPARISON: CR XR chest 1V portable [id number] 03/14/2021 1:11 PM FINDINGS: Lungs: Unremarkable. No consolidation. Pleural spaces: Unremarkable. No pleural effusion. No pneumothorax. Heart/Mediastinum: Unremarkable. No cardiomegaly. Bones/joints: No emergent findings identified. XR/XR chest 1V portable [id number] IMPRESSION: 1. No acute findings.
--- NOTE | 2021-08-27 00:14 | ED_ITS ---
HPI - COVID General: Chief Complaint: COVID symptoms Stated Complaint: Covid +, not feeling well Time Seen by Provider: 08/26/21 22:51 Triage information: Has fever, cough or shortness of breath . Exposure to COVID + person last 14 days History of Present Illness: Patient is a 41-year-old female comes to the ED with a cough and nasal congestion. Patient has been having the symptoms for the past 3 weeks. She tested negative for COVID-19 approximately 2 weeks ago and then did a home test on herself yesterday and it was positive. She saw her PCP a couple days ago and they told her she has sinus infection and put her on some Augmentin. She started taking the Augmentin approximately 2 days ago. Her cough is occasionally productive and she gets up a clear sputum. She did state that her heart rate sometimes will go down into the 60s which is unusual for her but she says she does not have any symptoms when it slow. She denies any dizziness, lightheaded feeling or near syncope. She says when she gets up and moves around her heart rate goes back up into the 80s like normal. Denies any fever, chills, body aches, chest pain, shortness of breath, nausea/vomiting, diarrhea or abdominal pain. COVID 19 common symptoms: positive productive cough (Occasionally productive with a clear sputum) and nasal congestion; negative fever(s), chills, non- productive cough, dyspnea, fatigue, headache(s), throat pain, nausea, vomiting or diarrhea COVID 19 other sytmptoms: negative chest pain COVID Results: SARS-CoV-2 RNA (RT-PCR) Pending 08/26/21 22:55 08/26/21 Review of Systems Const: Denies: fever(s), chills or fatigue Eyes: Denies: change in vision or eye discomfort ENMT: Reports: nasal congestion; Denies: throat pain, odynophagia or nasal discharge Card: Denies: chest pain, palpitations, edema, swelling of feet/ankles, dyspnea on exertion or orthopnea Resp: Reports: productive cough (Occasionally productive with a clear sputum); Denies: dyspnea or non-productive cough GI: Denies: abdominal pain, nausea, vomiting, diarrhea, constipation or hematochezia : Denies: flank pain, dysuria or hematuria Musc: Denies: neck pain, back pain or extremity swelling Skin/Breast: Denies: rash or new lesions Neuro: Denies: headache(s) PFSH ED PFSH: Medical History delivery delivered Pulmonary embolism Type 2 diabetes mellitus Surgical History H/O oophorectomy History of appendectomy Social History Second hand smoke exposure: No Smoking risk assessment/counseling performed?: No Alcohol intake: never Counseling given: No Counseling given: No Lives independently: Yes Household members: children Marital status: Single Current occupational status: employed Current occupational exposures/hazards: No History of recent travel: No Current gender identity: Female Female Reproductive History: Date of last menstrual period: 08/19/21 Physical Exam Const: COMMON NORMALS: no acute distress, patient oriented x3 and healthy appearing GENERAL APPEARANCE: cooperative and comfortable HENMT: COMMON NORMALS: normocephalic HEAD & SCALP: normocephalic NOSE: Nasal discharge present clear MOUTH: Normal oral and palatal mucosa present THROAT: posterior oropharynx normal and uvula midline Eye: COMMON NORMALS: Equal, round and reactive pupils present GENERAL EYE: appearance normal, both eyes and all related structures PUPIL: Yes Equal, round and reactive pupils present Neck/C-Spine: COMMON NORMALS: supple GENERAL: Yes normal visual inspection Resp: COMMON NORMALS: normal respiratory effort, No retractions, No use of accessory muscles and clear to auscultation bilaterally AUSCULTATION: clear to auscultation bilaterally Cardio: COMMON NORMALS: regular rate, regular rhythm, S1 normal heart sound present, S2 normal heart sound present, No gallops present (Cardio), No clicks present (Cardio), No murmurs present (Cardio) and Peripheral pulses 2+ throughout RATE: regular rate RHYTHM: regular rhythm HEART SOUNDS: S1 normal heart sound present and S2 normal heart sound present PERIPHERAL PULSES: Peripheral pulses 2+ throughout GI: COMMON NORMALS: Normal to inspection, nondistended, normoactive bowel sounds present, Soft to palpation, non-tender and no masses PALPATION: Yes Soft to palpation : COMMON NORMALS: Yes no CVA tenderness BLADDER/KIDNEY EXAM: Yes no CVA tenderness Back/Pelvis: COMMON NORMALS: no CVA tenderness Extremity: COMMON NORMALS: normal to inspection and no pedal edema Neuro: COMMON NORMALS: patient oriented x3 GAIT: Yes Normal gait present Skin: GENERAL SKIN EXAM: dry skin Course Vital Signs: Vital signs: Vital Signs Temperature 97.8 F 08/27/21 01:21 Pulse Rate 74 08/27/21 01:21 Respiratory Rate 18 08/27/21 01:21 Blood Pressure 119/82 08/27/21 01:21 Pulse Oximetry 96 08/27/21 01:21 [facility] - COVID Medical Decision Making Patient is a 41-year-old female comes to the ED with cough and congestion. She has been having the symptoms now for the past 3 weeks. She took an at-home COVID-19 test and it was positive yesterday. She was seen by her PCP a couple days ago and they diagnosed her with a sinus infection and put her on Augmentin. Denies any fever, chills, body aches, chest pain, shortness of breath, nausea/vomiting or diarrhea. Vitals are stable. Patient appears nontoxic and in no acute distress or pain. She has a little bit of clear nasal discharge but rest of exam is benign and lungs are clear to auscultation bilaterally. COVID- 19 PCR test is pending. Chest x-ray patient diagnosed with upper respiratory infection then discharged home with a prescription for Tessalon Perles and prednisone. She was told to continue taking her previously prescribed Augmentin. She was informed that her COVID-19 test is pending and results should be back within the next 24 to 48 hours and she can contact [facility] to find out results at that time. Follow-up with PCP in 3-5 days for reevaluation. Return to ED precautions given. Patient understood and agreed with plan. Lab Data SARS-CoV-2 RNA (RT-PCR) Pending 08/26/21 22:55 08/26/21 Discharge Plan Discharge Patient Disposition: Home Clinical Impression: Upper respiratory infection with cough and congestion Condition: Stable Prescriptions: New Tessalon Perles 100 mg capsule 100 mg PO Q6H PRN (Reason: cough) Qty: 20 0RF prednisone 20 mg tablet 20 mg PO BID 3 Days Qty: 6 0RF No Action pioglitazone 15 mg tablet 15 mg PO DAILY 0RF Eliquis 5 mg tablet 5 mg PO BID 0RF lisinopril-hydrochlorothiazide 10-12.5 mg tablet 1 tab PO DAILY Qty: 30 0RF metformin 500 mg tablet 500 mg PO BID Qty: 60 0RF (DME) diabetic supplies, miscellan. Misc See Rx Instructions .Route Qty: 1 0RF Rx Instructions: As directed Discharge Orders: Discharge ED (Routine); Ordered 08/27/21 Ordered By: Haris Chen Referrals: Erendira George PA-C [Primary Care Provider] - Discharge Diet: Regular Discharge Activity: Increase activity as tolerated Activity Restrictions/Additional Instructions: Follow-up with medical provider as directed in 3-5 days reevaluation. COVID-19 test is pending and should be back in the next 24 to 48 hours. Call [facility] to find out COVID-19 test results. Take medications as prescribed. Make sure you drink plenty of fluids and stay hydrated. Take [id number] Tylenol for any fevers or pain. Return to the ER or your medical provider if condition worsens. Please read and understand discharge instructions. Thank you for choosing [facility] for your healthcare needs today. Please realize this is an emergency room and that we are providing you with a medical screening exam and this may not be complete and all inclusive of all the testing and or work up that you may need to determine your ailment or severity of your illness. It is very important that you follow up as instructed or that you return to the Emergency Department should you have concerns or if your con dition changes or worsens in any way. Coding Level of Care Code ED Data Security Consultant for Prabhu Sharma Exam Comprehensive
[2021-08-27 00:20] VITALS: BP 119/82; PULSE 74; RESP 18; TEMP 36.6; O2SAT 96
[2021-08-27 01:21] VITALS: BP 119/82; PULSE 74; RESP 18; TEMP 36.6; O2SAT 96
[2021-08-28 19:19] LABS: Quest SARS-CoV-2 RNA DETECTED (NOT DETECTED)
--- NOTE | 2021-08-29 14:31 | PC.NURSE ---
Notified of (+) COVID
== END 2021-08-27 01:21 | disposition home or self-care (01) ==
PROVIDERS: Emergency Provider Physician Assistant; PCP Physician Assistant
DX: U07.1 COVID-19 (principal); J06.9 Acute upper respiratory infection, unspecified; E11.9 Type 2 diabetes mellitus without complications; Z86.711 Personal history of pulmonary embolism; Z79.01 Long term (current) use of anticoagulants; Z79.84 Long term (current) use of oral hypoglycemic drugs
CPT/HCPCS: 71045; 87635; 99283